=== PATIENT | male | born 1975 | race Caucasian/White ===

== ENCOUNTER 2020-10-02 14:30 | Emergency (ER) | payer OTHER ==
[~2020-10-02] VITALS: Ht 190.5 cm; Wt 106.1 kg
[2020-10-02 16:15] LABS: BASOPHILS % (AUTO) 1 % (0-1); EOSINOPHILS % (AUTO) 1 % (1-7); LYMPHOCYTES % (AUTO) 13 % (22-44); MEAN CORPUSCULAR HEMOGLOBIN 31.4 pg (27.5-34.5); MEAN CORPUSCULAR HGB CONC 34.4 g/dL (33.2-36.2); MEAN PLATELET VOLUME 8.1 fL (7.4-10.4); MONOCYTES % (AUTO) 7 % (2-9); NEUTROPHILS % (AUTO) 78 % (42-75); PLATELET COUNT 372 x10^3/uL (130-400); RED BLOOD COUNT 4.95 x10^6/uL (4.38-5.82); RED CELL DISTRIBUTION WIDTH 13.3 % (9.4-14.8)
[2020-10-02 16:24] LABS: ALBUMIN 4.2 g/dL (3.4-5.0); ANION GAP 8 mmol/L (5-15); CHLORIDE 108 mmol/L (98-107)
[2020-10-02 16:26] LABS: ALANINE AMINOTRANSFERASE 29 U/L (12-78); ALKALINE PHOSPHATASE 82 U/L (45-117); BILIRUBIN,TOTAL 0.5 mg/dL (0.2-1.0); CREATININE 0.94 mg/dL (0.7-1.3); TOTAL PROTEIN 8.4 g/dL (6.4-8.2)
--- NOTE | 2020-10-02 19:10 | NUR ---
PT IS TEARFUL, PT STATES, "MY HEART IS GOING NUTS", PT STATES, "I GOT UNINTENTIONALLY ADDICTED TO [facility] THROUGH THE [facility]", PT STATES HE CANT STOP SHAKING FROM THE INSIDE, PT STATES HE HAD COVID AND WENT TO [facility] AND WAS THERE FOR 3 WEEKS AND THEN WAS A NURSING FACILITY FOR 3 WEEKS, PT STATES WHILE AT [facility] HE WAS GIVEN [facility] TO HELP HIM SLEEP.
--- NOTE | 2020-10-02 19:33 | NUR ---
CURRENTLY AT BEDSIDE
--- NOTE | 2020-10-02 19:51 | NUR ---
PT NOT ALLOWING THIS RN TO PLACE IV DUE TO ANXIETY, THIS RN STATED THAT THE IV WOULD HELP GET MEDICATION IN FASTER AND TO HELP PT FEEL BETTER SOONER, PT STILL RELUCTANT TO HAVE IV STARTED.
[2020-10-02] MEDS ORDERED: DIPHENHYDRAMINE 50 MG/ML, 1ML ONE (19:57)
[2020-10-02] MEDS ORDERED: DIPHENHYDRAMINE 50 MG/ML, 1ML IV ONE (20:00)
[2020-10-02 21:34] VITALS: BP 141/97
== END 2020-10-02 21:36 | disposition home or self-care (01) ==
LOC: ED 20:40
DX: F41.1 Generalized anxiety disorder (principal); I45.10 Unspecified right bundle-branch block; R06.4 Hyperventilation; I10 Essential (primary) hypertension; F13.139 Sedative, hypnotic or anxiolytic abuse with withdrawal, unspecified
CPT/HCPCS: 36415; 80053; 85025; 93005; 96374; 99284; J1200

== ENCOUNTER 2020-10-08 17:46 | Emergency (ER) | payer OTHER ==
[~2020-10-08] VITALS: Ht 190.5 cm; Wt 106.0 kg
--- NOTE | 2020-10-08 18:11 | NUR ---
needle control cheniller: Pt ambulatory to room from lobby at this time.
--- NOTE | 2020-10-08 18:29 | NUR ---
ASSUMED CARE OF PATIENT. PATIENT REPORTS HE HAD COVID AND WAS HOSPITALIZED AND THEN WENT TO A REBHAB FACILITY. PT REPORTS TODAY HE IS HAVING PALPITATIONS AND GENERALIZED ABD PAIN. VS STABLE. REPAIRER AUTO CLOCKS ON. NSR NOTED. CALL LIGHT IN PLACE. WILL CONTINUE TO MONITOR.
--- NOTE | 2020-10-08 18:47 | NUR ---
PT RESTING IN ROOM. VS STABLE. HVAC REFRIGERATION TECHNICIAN ON. CALL LIGHT IN PLACE. WILL CONTINUE TO MONITOR.
[2020-10-08 19:22] LABS: BASOPHILS % (AUTO) 1 % (0-1); EOSINOPHILS % (AUTO) 2 % (1-7); LYMPHOCYTES % (AUTO) 30 % (22-44); MEAN CORPUSCULAR HEMOGLOBIN 31.9 pg (27.5-34.5); MEAN PLATELET VOLUME 7.8 fL (7.4-10.4); MONOCYTES % (AUTO) 8 % (2-9); NEUTROPHILS % (AUTO) 59 % (42-75); PLATELET COUNT 360 x10^3/uL (130-400); RED CELL DISTRIBUTION WIDTH 13.1 % (9.4-14.8)
[2020-10-08 19:37] LABS: ANION GAP 8 mmol/L (5-15); CALCIUM 9.2 mg/dL (8.5-10.1); CHLORIDE 108 mmol/L (98-107); CREATININE 0.79 mg/dL (0.7-1.3)
[2020-10-08 19:41] LABS: TROPONIN I < 0.015 ng/mL (0.000-0.045)
--- NOTE | 2020-10-08 19:51 | NUR ---
PT RESTING IN ROOM. VS STABLE. NO ACUTE DISTRESS NOTED. CALL LIGHT IN PLACE. WILL CONTINUE TO MONITOR.
--- NOTE | 2020-10-08 20:22 | NUR ---
PT WATCHING TV IN ROOM. VS STABLE. NO ACUTE DISTRESS NOTED. CALL LIGHT IN PLACE WILL CONTINUE TO MONITOR.
[2020-10-08] MEDS ORDERED: POTASSIUM CHLORIDE 20 MEQ TAB.ER.PRT PO ONE (21:00)
--- NOTE | 2020-10-08 21:09 | NUR ---
DR HUFF HAS UPDATED PATIENT
[2020-10-08] MEDS ORDERED: POTASSIUM CHLORIDE 20 MEQ TAB.ER.PRT ONE (21:22)
[2020-10-08 21:23] VITALS: BP 145/100
== END 2020-10-08 21:32 | disposition home or self-care (01) ==
LOC: ED 18:23
DX: R00.2 Palpitations (principal); E87.6 Hypokalemia; R07.89 Other chest pain; I45.19 Other right bundle-branch block; I10 Essential (primary) hypertension
CPT/HCPCS: 36415; 71045; 80048; 82040; 83735; 83880; 84484; 85025; 93005; 99285

== ENCOUNTER 2020-10-16 11:42 | Emergency (ER) | payer OTHER ==
[~2020-10-16] VITALS: Ht 190.5 cm; Wt 109.0 kg
--- NOTE | 2020-10-16 12:01 | NUR ---
PT AMBULATORY TO ROOM 33 W/ C/O HTN. 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 PT STATES HX HTN. PT ALSO STATES HX ANXIETY AND IS TEARFUL IN ROOM. STATES "THEY WANTED ME TO SEE A HEEL SEWER BUT THAT WAS 4 WEEKS OUT. I WANT TO SEE SOMEONE ABOUT MY ANXIETY AND THEY CAN'T SEE ME FOR 3 WEEKS AND I JUST DON'T HAVE THE PATIENCE FOR THAT". PT RESTING ON ANDRIY. PAULINA. MONITORS APPLIED. BP ELEVATED.
[2020-10-16 13:04] LABS: BASOPHILS % (AUTO) 1 % (0-1); EOSINOPHILS % (AUTO) 2 % (1-7); LYMPHOCYTES % (AUTO) 28 % (22-44); MEAN CORPUSCULAR HEMOGLOBIN 31.6 pg (27.5-34.5); MEAN CORPUSCULAR HGB CONC 34.7 g/dL (33.2-36.2); MEAN PLATELET VOLUME 8.3 fL (7.4-10.4); MONOCYTES % (AUTO) 8 % (2-9); NEUTROPHILS % (AUTO) 61 % (42-75); PLATELET COUNT 422 x10^3/uL (130-400); RED BLOOD COUNT 4.99 x10^6/uL (4.38-5.82); RED CELL DISTRIBUTION WIDTH 13.4 % (9.4-14.8)
--- NOTE | 2020-10-16 13:10 | NUR ---
PT RESTING ON ANDRIY. PAULINA. BP STABILIZING.
[2020-10-16 13:15] LABS: ALANINE AMINOTRANSFERASE 35 U/L (12-78); ANION GAP 8 mmol/L (5-15); CALCIUM 9.1 mg/dL (8.5-10.1); CHLORIDE 106 mmol/L (98-107)
[2020-10-16 13:17] LABS: ALKALINE PHOSPHATASE 76 U/L (45-117); BILIRUBIN,TOTAL 0.4 mg/dL (0.2-1.0); CREATININE 0.73 mg/dL (0.7-1.3)
--- NOTE | 2020-10-16 13:29 | NUR ---
PT EMOTIONAL IN ROOM. DISCUSSED W/ PT THOUGHTS OF SI/SA/HI. DENIES SI/SA/HI. STATES "THE ONLY WAY I'M GOING TO LEAVE THIS PLANET IS HOWEVER LIFE DECIDES TO DO IT. I'M NOT GOING TO DO THAT".
--- NOTE | 2020-10-16 13:35 | NUR ---
PT CHART REVIEWED AND PLACED FOR RECHECK.
--- NOTE | 2020-10-16 13:59 | NUR ---
ERP DR. WETZEL AT BEDSIDE FOR RE-EVAL.
[2020-10-16 14:26] VITALS: BP 143/98
== END 2020-10-16 14:52 | disposition home or self-care (01) ==
LOC: ED 13:03
DX: I10 Essential (primary) hypertension (principal); F41.1 Generalized anxiety disorder; I45.10 Unspecified right bundle-branch block
CPT/HCPCS: 36415; 71045; 80053; 85025; 93005; 99285

== ENCOUNTER 2020-10-25 10:26 | Emergency (ER) | payer OTHER ==
[~2020-10-25] VITALS: Ht 190.5 cm; Wt 109.3 kg
--- NOTE | 2020-10-25 11:26 | NUR ---
PT TO ROOM 34 W/ C/O HTN AND OCULAR MIGRAINE FLOREZ. PT ALSO TEARFUL IN ROOM. STATES "I JUST NEED A LOT OF HELP". PT DENIES SI/HI BUT STATES HE THINKS HE NEEDS HELP. PT TEARFUL. STATES HE CAN'T DO THE THINGS HE USED TO DO. PT ALSO CONCERNED ABOUT BP. PT RESTING ON GURNEY. TEARFUL BUT COOPERATIVE. MONITORS APPLIED. BP REMAINS ELEVATED. ERP DR. OH AT BEDSIDE FOR EVAL.
[2020-10-25] MEDS ORDERED: OXYMETAZOLINE NASAL SPRAY 0.05%,30ML ONE (11:29)
[2020-10-25] MEDS ORDERED: OXYMETAZOLINE NASAL SPRAY 0.05%, 15ML NAS ONE (11:30)
--- NOTE | 2020-10-25 11:33 | NUR ---
PT ATTEMPTED TO PROVIDE UA SAMPLE AND PT WAS UNABLE TO DO SO. AWARE OF NEED.
[2020-10-25 11:57] LABS: BASOPHILS % (AUTO) 1 % (0-1); EOSINOPHILS % (AUTO) 3 % (1-7); LYMPHOCYTES % (AUTO) 25 % (22-44); MEAN CORPUSCULAR HEMOGLOBIN 31.5 pg (27.5-34.5); MEAN CORPUSCULAR HGB CONC 34.6 g/dL (33.2-36.2); MEAN PLATELET VOLUME 7.6 fL (7.4-10.4); MONOCYTES % (AUTO) 9 % (2-9); NEUTROPHILS % (AUTO) 62 % (42-75); PLATELET COUNT 428 x10^3/uL (130-400); RED BLOOD COUNT 5.08 x10^6/uL (4.38-5.82); RED CELL DISTRIBUTION WIDTH 12.6 % (9.4-14.8)
--- NOTE | 2020-10-25 12:07 | NUR ---
PT RESTING ON GURNEY. NADN. AGRAWAL.
[2020-10-25 12:08] LABS: ALBUMIN 3.9 g/dL (3.4-5.0); ANION GAP 5 mmol/L (5-15); CALCIUM 9.1 mg/dL (8.5-10.1); CHLORIDE 108 mmol/L (98-107)
[2020-10-25 12:17] LABS: MICROSCOPIC NOT IND
[2020-10-25 12:21] LABS: ALANINE AMINOTRANSFERASE 41 U/L (12-78); ALKALINE PHOSPHATASE 73 U/L (45-117); BILIRUBIN,TOTAL 0.4 mg/dL (0.2-1.0); CREATININE 0.76 mg/dL (0.7-1.3); TOTAL PROTEIN 7.9 g/dL (6.4-8.2)
[2020-10-25 12:28] LABS: SALICYLATE LEVEL < 1.7 mg/dL (2.8-20.0)
[2020-10-25 12:30] LABS: AMPHETAMINE SCREEN, URINE Negative (Negative); BARBITURATE SCREEN, URINE Negative (Negative); CANNABINOID SCREEN, URINE Negative (Negative); COCAINE SCREEN, URINE Negative (Negative); OPIATE SCREEN, URINE Negative (Negative)
[2020-10-25 12:32] LABS: BENZODIAZEPINE SCREEN, URINE Negative (Negative); METHADONE SCREEN, URINE Negative (Negative)
--- NOTE | 2020-10-25 12:56 | NUR ---
PT RESTING ON GURNEY. NADN. AGRAWAL.
--- NOTE | 2020-10-25 13:36 | NUR ---
KAYLA, PSYCH PRESSER FIRST AT BEDSIDE.
[2020-10-25] MEDS ORDERED: QUET25TA5 PO (13:41)
[2020-10-25 14:00] VITALS: BP 136/97
--- NOTE | 2020-10-25 14:00 | NUR ---
PT RESTING ON GURNEY. NADN. AGRAWAL.
== END 2020-10-25 14:18 | disposition home or self-care (01) ==
LOC: ED 11:28
DX: F33.9 Major depressive disorder, recurrent, unspecified (principal); F43.22 Adjustment disorder with anxiety; R45.851 Suicidal ideations; I10 Essential (primary) hypertension; R51.9 Headache, unspecified
CPT/HCPCS: 36415; 80053; 80299; 80307; 80320; 80329; 81003; 84443; 85025; 99285; G0480

== ENCOUNTER → 2020-11-08 | Outpatient (CLI) | payer OTHER ==
[~2020-11-08] MED LIST: QUET25TA5 PO
== END | disposition home or self-care (01) ==
LOC: CFH 15:10
PROVIDERS: ATTEND Internal Medicine Cardiovascular Disease
DX: Z13.6 Encounter for screening for cardiovascular disorders (principal); R91.8 Other nonspecific abnormal finding of lung field
CPT/HCPCS: 75571

== ENCOUNTER → 2020-12-05 | Outpatient (CLI) | payer OTHER | END | disposition home or self-care (01) | LOC: CVU 16:09 | PROVIDERS: ATTEND Internal Medicine Cardiovascular Disease | DX: I36.1 Nonrheumatic tricuspid (valve) insufficiency (principal); R06.02 Shortness of breath | CPT/HCPCS: 93306; 93356 ==